=== PATIENT | female | born 1980 | race Caucasian/White ===

== ENCOUNTER 2017-08-11 08:57 | Outpatient (CLI) | payer OTHER ==
--- NOTE | 2017-08-11 10:17 | Fluoroscopy Report ---
UPPER GI AIR CONTRAST: History: Congenital hiatus hernia. FINDINGS: 30 fluoroscopic images were captured. The patient ingested barium without difficulty. The esophageal contour is normal. There are no ulcerations or filling defects seen in the esophagus. There is normal esophageal motility. There is no hiatal hernia or reflux. The gastric contour and position appear normal. There are no ulcerations or filling defects in the stomach. The duodenal bulb and duodenal sweep appear normal. IMPRESSION: Negative double contrast upper GI examination.
== END 2017-08-11 08:58 | disposition home or self-care (01) ==
LOC: FLUORO 08:57
PROVIDERS: ATTEND Internal Medicine Cardiovascular Disease
DX: Q40.1 Congenital hiatus hernia (principal)
CPT/HCPCS: 74246